=== PATIENT | male | born 1930 | race Caucasian/White ===

== ENCOUNTER 2016-07-28 08:49 | Inpatient (IN) | payer OTHER, MEDICARE ==
[~2016-07-28] VITALS: Ht 175.3 cm; Wt 84.3 kg
--- NOTE | ~2016-07-28 | HC ---
[facility] [place] [address] CONSULTATION Name: ARIN KITCHEN Julisa Room #: 437-P [facility] IN ..#: [id number] Admission: 07/28/16 Attend Phys: Geo Bills MD Discharge: Date of : 31 Report #: [id number] THIS REPORT FOR: //name// CC: Geo Awad DATE OF SERVICE: 07/28/2016 REASON FOR CONSULTATION: Preop surgical clearance with aortic stenosis. HISTORY OF PRESENT ILLNESS: This is a very pleasant 85-year-old gentleman who was brought from the [facility] because of hematochezia. The patient stated that he did develop bright red blood per rectum on the night prior to consultation, but had no abdominal discomfort or abdominal pain. He does not have any chest pain, pressure, tightness or heaviness and does have dementia. His history is difficult to follow since he does ____ topic. The patient had a knee surgery performed not so long ago and when he was brought back for evaluation of his 2nd knee surgery, he was found to have a systolic murmur and aortic stenosis was identified. The echocardiogram from demonstrates a peak velocity of greater than 0.2 meters per second and a calculated aortic valve area of 0.66 cm2. He does not have any syncope, he does not have any orthopnea. He is limited by his knees, so he is not very ambulatory either. He has no fever, chills, night sweats. No documented ischemic heart disease. PAST MEDICAL HISTORY: Significant for: 1. Hypertension. 2. 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 3. Degenerative joint disease. 4. Hypertension. 5. Dyslipidemia. 6. Some degree of organicity. ALLERGIES: No known drug allergies. PAST SURGICAL HISTORY: 1. Laminectomies times 2. 2. Eye surgery for detached retina 17 times. 3. Right knee surgery. 4. Nephrolithiasis treatment. MEDICATIONS: At home are Aricept, Namenda, glucosamine, multivitamin, vitamin D, Tylenol and Zoloft. Electrocardiogram demonstrates normal sinus rhythm, no acute changes. LABORATORY DATA: Demonstrates a potassium of 4.0. BUN and creatinine are 11 [facility] [address] [place] [address] CONSULTATION Name: ARIN KITCHEN Room #: 437-P [facility] IN ..#: [id number] Admission: 07/28/16 Attend Phys: Geo Bills MD Discharge: Date of : 31 Report #: [id number] and 0.9. H and H is 14.9 and 44.3 with a platelet count of 219,000. RADIOLOGIC: CT demonstrates colonic diverticulosis without CT evidence of diverticulitis. REVIEW OF SYSTEMS: Difficulty to obtain from the patient due to his organicity, but from the chart, except for symptoms previously mentioned and those commensurate with comorbid states that documented in the chart, review of systems is negative. PHYSICAL EXAMINATION: GENERAL: Well-developed, well-nourished male, resting comfortably in no distress. VITAL SIGNS: Noted and reviewed in the chart. HEENT: Normocephalic, atraumatic. Pupils are equal, round, reactive to light and accommodation. Extraocular muscles are intact. Sclerae and conjunctivae are anicteric. NECK: JVD is normal. Carotid upstrokes are bilaterally symmetrical. No bruits are heard. No thyromegaly. No lymphadenopathy. LUNGS: Clear to auscultation. No wheezes, rhonchi or crackles. No CVA tenderness. CARDIAC: Demonstrates a regular rhythm. Grade 3/6 systolic murmur in the aortic region ____ entire precordium. Carotid upstrokes are depressed bilaterally with transmission of the murmur into the neck. PMI is not palpable. No diastolic murmurs are noted. ABDOMEN: Soft, nontender, no hepatosplenomegaly ____. EXTREMITIES: Without cyanosis, clubbing or edema. NEUROLOGIC: Cranial nerves 2-12 are grossly normal and symmetrical. PSYCHIATRIC: Alert, oriented with normal affect. SKIN: Warm and dry. IMPRESSION: 1. Aortic stenosis, severe. The issue is with significant aortic stenosis documented by the echocardiogram. He is a high risk for any type of hypotensive episodes that might occur. We will need to discuss with family what long-term plans we might have for that. 2. Hematochezia. The question is whether we can go conservatively or we need to proceed invasively and we will again discuss this more fully once we can come to consensus with family, the patient, etc. <ELECTRONICALLY SIGNED> By: Dmitriy Brown MD 07/29/16 1701 [id number] [id number] Dmitriy Brown MD /nt
--- NOTE | ~2016-07-28 | D ---
[facility] [place] [address] DISCHARGE SUMMARY Name: MARCO ANTONIOAYAANARIN Room #: 437-P [facility] IN ..#: [id number] Admission: 07/28/16 Attend Phys: Geo Bills MD Discharge: 07/30/16 Date of : 31 Report #: [id number] THIS REPORT FOR: //name// CC: Geo Awad FINAL DIAGNOSES: 1. Lower gastrointestinal bleed. 2. Internal hemorrhoids. 3. Diverticulosis. 4. Aortic stenosis. HOSPITAL COURSE: The patient was admitted to the emergency room with bright red blood per rectum. Hemoglobin remained stable between 12 and 14 during his stay. By 24 hours, the bleeding had stopped. He was taken for a colonoscopy by Dr. Kapadia. Generally, those results revealed sigmoid diverticulosis, with no signs of bleeding, but internal and small external component of hemorrhoids. Ultimately, we felt that his bleeding was likely related to the hemorrhoids. He was treated with topical foam treatment. Home medications were continued and he had no other interval complications. It should also be noted that I spoke to his daughter who is a physician regarding his aortic stenosis. This has been diagnosed at [facility] and he has plans for outpatient workup with the cardiology service. Dr. Brown saw him here, but did not have any new recommendations for treatment as he was clinically stable. DISPOSITION: To be discharged to home with diet and activity as tolerated. He will resume all his home medications plus Proctofoam twice a day for a week. Follow up with Dr. Awad in 2-4 weeks. <ELECTRONICALLY SIGNED> By: Geo Bills MD 08/01/16 0751 1007 1125 Geo Bills MD /nt
--- NOTE | ~2016-07-28 | H ---
[facility] [place] [address] HISTORY AND PHYSICAL Name: ARIN KITCHEN Room #: 437-P [facility] IN ..#: [id number] Admission: 07/28/16 Attend Phys: Geo Bills MD Discharge: Date of : 31 Report #: [id number] THIS REPORT FOR: //name// CC: Geo Awad DATE OF SERVICE: 07/28/2016 CHIEF COMPLAINT: Blood per rectum. HISTORY OF PRESENT ILLNESS: The patient is an 85-year-old gentleman from ____ was brought into the Emergency Room by his daughter today for evaluation of GI bleed. She gave most of the history as the patient has prior history of some dysarthria and perhaps little bit of cognitive dysfunction, may be related to previous vascular event. She reports that last night, they went out to dinner and he seemed in his usual health. He called her this morning and she came over to check on him and noted there was bright red blood in his bathroom and on his clothes. It appeared to her that he was having some lower GI bleed. It should also be mentioned that his daughter, Sonja Kitchen is an auto parts manager in town that works in long-term care and knows his case well. Since he presented to the Emergency Room, he has had at least another episode of blood per rectum. He is denying any abdominal pain. She reports that he does not take aspirin or ibuprofen or any other type of anticoagulants. PAST MEDICAL HISTORY: Osteoarthritis of the knees, mild cognitive disorder with dysarthria. He has history of aortic stenosis. PAST SURGICAL HISTORY: He has had a right knee replacement. FAMILY HISTORY: Noncontributory. SOCIAL HISTORY: No chronic alcohol or tobacco use. He worked in construction for a number of years. ALLERGIES: No known drug allergies. MEDICATIONS: Aricept 10 mg, Tylenol, Zoloft 100 mg, Namenda 10 mg, glucosamine, multivitamin, vitamin D. REVIEW OF SYSTEMS: He is denying chest pain, shortness of breath, abdominal pain, nausea or vomiting, dysuria. OBJECTIVE: VITAL SIGNS: Temperature 36.4, pulse 56, respirations 20, blood pressure 170/88, O2 sat 100% on room air. GENERAL: He is an elderly man, he is awake and alert. 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 LUNGS: Clear. HEART: Regular rate and rhythm. There is a soft 2-3/6 systolic murmur on the left sternal border. ABDOMEN: Protuberant, soft, normoactive bowel sounds. No rebound or guarding. No palpable masses. EXTREMITIES: No cyanosis, clubbing or edema. NEUROLOGIC: Cranial nerves intact. Motor strength 5/5 throughout. LABORATORY DATA: Hemoglobin is 14.9. Chemistries normal. CT of the abdomen revealed diverticulosis, but no changes to suggest acute inflammatory process. ASSESSMENT: 1. Lower gastrointestinal bleed. 2. Diverticulosis. 3. Aortic stenosis. PLAN: He will be admitted to telemetry with serial hemoglobin labs. I will ask the GI service to see him and order a bleeding scan at this time to see if he is a candidate for embolization. Given nature of bright red blood, it appears this would be a lower GI source. <ELECTRONICALLY SIGNED> By: Geo Bills MD 07/29/16 0803 [id number] [id number] Geo Bills MD /nt
--- NOTE | ~2016-07-28 | P ---
[facility] [place] [address] PROCEDURE REPORT Name: MARCO ANTONIOAAYANARIN Egan Room #: 437-P [facility] IN ..#: [id number] Admission: 07/28/16 Attend Phys: Geo Bills MD Discharge: Date of : 31 Report #: [id number] THIS REPORT FOR: //name// CC: Geo Awad DATE OF SERVICE: 07/29/2016 PROCEDURE PERFORMED: Colonoscopy. HISTORY OF PRESENT ILLNESS: The patient is an 85-year-old male with recent hematochezia. It is not associated with abdominal pain, no previous history of GI bleed. CT scan on admission showed diverticulosis, but no evidence of colitis or inflammation. Last colonoscopy was at least greater than 10 years ago. We discussed proceeding with the colonoscopy with sedation yesterday when he presented, however, he has a history of severe aortic stenosis. Therefore, cardiology was consulted and I spoke with Dr. Brown yesterday as well as speaking with the family, he was very high risk for sedation of any kind. Overnight 2 bleeding scans were performed which were negative; however, this morning, he began having some more bright red blood per rectum; therefore, I had a long discussion with the patient's daughter who is a durable power of claim attorney and we discussed potentially proceeding with a flexible sigmoidoscopy without any sedation due to his cardiac risk, she was in agreement with that. DESCRIPTION OF PROCEDURE: The risks and benefits of the procedure were explained to the patient's daughter, those risks including but not limited to bleeding, perforation, and she understood these risks and gave informed consent. There was no sedation given for the procedure. The procedure was performed in the GI lab. A digital rectal exam was initially performed, which showed small external hemorrhoids, nonbleeding, otherwise normal. Next, using a standard Fujinon colonoscope, the scope was placed in the patient's anus and advanced under direct vision into the transverse colon. The overall prep was actually very good. The patient was tolerating the procedure well from a vital signs standpoint, not having any abdominal pain. Therefore, I proceeded with a full colonoscopy. The scope was advanced to the cecum. The cecum and ileocecal valve were normal in appearance. The ascending, transverse, and descending colon were all normal. Of note, there was no blood noted throughout the entire exam today and again, the prep was very, very good overall considering the patient was not prepped for colonoscopy. Multiple diverticula were noted in the sigmoid colon, no stigmata of recent bleeding, no blood or clots were seen. The rectal mucosa was normal. No blood in the rectum. There were internal hemorrhoids. It was difficult to tell if there was a small anal fissure, but [facility] [address] [place] [address] PROCEDURE REPORT Name: ARIN KITCEHN Room #: 437-P [facility] IN M.R.#: [id number] Admission: 07/28/16 Attend Phys: Geo Bills MD Discharge: Date of : 31 Report #: [id number] again no clot or blood was seen in this area. The scope was then withdrawn and the procedure terminated. The patient tolerated the procedure well. IMPRESSION: 1. Sigmoid diverticulosis, no stigmata of recent bleeding. It is possible the patient could have bled from this area which has now stopped. 2. Internal hemorrhoids with small component of external hemorrhoids, doubt anal sphincter, but still possible. This may be etiology of recent bleeding. There was no active bleeding at this time. RECOMMENDATIONS: 1. We will use Analpram b.i.d. 2. Advance diet. 3. Continue to monitor the patient closely. If his hemoglobin is stable, consider discharge in the near future. Thank you for allowing me to participate in his care. <ELECTRONICALLY SIGNED> By: Ranjan Kapadia MD 07/30/16 1147 [id number] [id number] Ranjan Kapadia MD /nt
--- NOTE | ~2016-07-28 | HC ---
[facility] [place] [address] CONSULTATION Name: ARIN KITCHEN Room #: 437-P [facility] IN M.R.#: [id number] Admission: 07/28/16 Attend Phys: Stephanie Bills MD Discharge: Date of : 31 Report #: [id number] THIS REPORT FOR: //name// CC: STEPHANIE KITCHEN DO Zacarias Ritesh DATE OF SERVICE: 07/28/2016 HISTORY OF PRESENT ILLNESS: The patient is an 85-year-old male with new onset hematochezia. He denies any abdominal pain. He does have a history of dementia. He currently lives at nurse in a facility, began having bright red blood per rectum. Again, he denies any abdominal pain, no nausea or vomiting, no fevers or chills. His daughter is a physician, I spoke with her today. Apparently, there was possibility of blood noted recently and a UA was done, which was negative and stool Hemoccult testing was negative, but this was approximately 1-2 weeks ago. The patient is unsure as well as his daughter if he has had a colonoscopy, and if so when the last endoscopy was performed. He has had a right total knee done at , which he tolerated well and he was scheduled to have a left total knee, but preop evaluation showed a significant aortic stenosis; therefore, the cardiac workup was still under way, this was done at [facility]. The patient is not on any anticoagulation therapy. He denies any chest pain or shortness of breath. No previous history of gastrointestinal bleed. PAST MEDICAL HISTORY: Aortic stenosis, recent echocardiogram performed at [facility], history of right total knee arthroplasty, hypertension, dementia, renal stones, hypercholesterolemia, previous laminectomy, previous eye surgery. MEDICATIONS ON ADMISSION: Aricept, Namenda, glucosamine, multivitamin, Tylenol, vitamin D, Zoloft. ALLERGIES: No known drug allergies. SOCIAL HISTORY: No recent history of tobacco or alcohol use. FAMILY HISTORY: No known history of colon cancer. REVIEW OF SYSTEMS: As per HPI. PHYSICAL EXAMINATION: VITAL SIGNS: Temperature is 97.6, pulse 56, blood pressure 147/73, respiratory rate is 13. GENERAL: He is not oriented to place. He is in no acute distress. [address] [address] CONSULTATION Name: ARIN KITCHEN Room #: 437-P [facility] IN .R.#: [id number] Admission: 07/28/16 Attend Phys: Stephanie Bills MD Discharge: Date of : 31 Report #: [id number] HEENT: Sclerae nonicteric. Oropharynx clear. NECK: Supple. CARDIOVASCULAR: Regular rate with systolic ejection murmur noted. CHEST: Clear to auscultation bilaterally. ABDOMEN: Soft. He is nontender, nondistended. Normoactive bowel sounds. EXTREMITIES: No cyanosis, clubbing or edema. LABORATORY DATA: Sodium 144, potassium 4.0, chloride 106, bicarb 29, BUN 11, creatinine 0.9. Lipase 88. INR 1.0. WBC is 7.3, hemoglobin 14.9, platelet count is 219. CT scan of the abdomen and pelvis was performed on admission, which showed colonic diverticulosis without evidence of diverticulitis. No inflammatory masses, ascites or bowel obstruction were seen. ASSESSMENT AND PLAN: Hematochezia, suspect this may be secondary to a diverticular bleed. The patient is not having any abdominal pain at this time. I agree with serial hemoglobin checks, which are already scheduled. I spoke with the daughter who is a physician regarding our options including potentially prepping the patient for colonoscopy as early as tomorrow. However, he does have a history of significant aortic stenosis apparently and was currently under workup for this prior to being considered candidate for his knee surgery. We will therefore obtain a cardiology consult and then continue to monitor patient closely. We will start clear liquid diet at this time. Thank you for allowing me to participate in his care. <ELECTRONICALLY SIGNED> By: Ranjan Kapadia MD 07/29/16 1012 1232 0146 Ranjan Kapadia MD /nt
[2016-07-28 08:52] VITALS: BP 170/88
[2016-07-28] MEDS ORDERED: ARICEPT 5 MG TAB5 MG PO (09:20)
[2016-07-28] MEDS ORDERED: GLUCOSAMINE HC500 MG PO (09:20)
[2016-07-28] MEDS ORDERED: NAMENDA 10 MG T10 MG PO (09:20)
[2016-07-28] MEDS ORDERED: MULTI VITAMIN1 EACH PO (09:21)
[2016-07-28] MEDS ORDERED: VITAMIN D1000 UNI1 PO (09:21)
[2016-07-28 09:22] LABS: ABSOLUTE NEUTROPHILS 4.2 thou/uL (1.4-8.2); BASOPHILS 0.7 % (0.0-2.0); HEMATOCRIT 44.3 % (42.0-52.0); HEMOGLOBIN 14.9 gm/dL (14.0-18.0); LYMPHOCYTES 30.7 % (24.0-44.0); MCH 31.1 pg (26.0-34.0); MCHC 33.7 % (28.0-37.0); MCV 92.1 fL (80.0-100.0); PLATELET COUNT 219 thou/uL (150-400); POLYS 57.6 % (36.0-66.0); RBC 4.81 mil/uL (4.50-6.00); WBC 7.3 thou/uL (4.0-11.0)
[2016-07-28] MEDS ORDERED: ZOLOFT50 MG PO (09:22)
[2016-07-28] MEDS ORDERED: TYLENOL325 MG PO (09:22)
[2016-07-28 09:24] LABS: CALCIUM 9.1 mg/dL (8.5-10.1); CREATININE 0.9 mg/dL (0.6-1.3); MANUAL DIFF NO
[2016-07-28 09:33] LABS: PROTIME 10.4 Seconds (9.3-11.4)
[2016-07-28 10:55] VITALS: BP 147/73
[2016-07-28 12:00] VITALS: BP 163/61
[2016-07-28 13:38] LABS: HEMATOCRIT 37.3 % (42.0-52.0)
[2016-07-28 13:42] LABS: HEMOGLOBIN 12.8 gm/dL (14.0-18.0)
[2016-07-28 16:00] VITALS: BP 158/79
[2016-07-28 18:57] LABS: HEMATOCRIT 38.4 % (42.0-52.0)
[2016-07-28 19:48] VITALS: BP 131/93
[2016-07-28 23:59] VITALS: BP 144/60
[2016-07-29 01:27] LABS: HEMATOCRIT 37.8 % (42.0-52.0); HEMOGLOBIN 12.6 gm/dL (14.0-18.0); MCHC 33.4 % (28.0-37.0); MCV 92.8 fL (80.0-100.0); RBC 4.07 mil/uL (4.50-6.00); RDW 12.5 % (10.5-14.5); WBC 6.9 thou/uL (4.0-11.0)
[2016-07-29 05:09] VITALS: BP 134/59
[2016-07-29 07:47] LABS: HEMATOCRIT 36.7 % (42.0-52.0); HEMOGLOBIN 12.4 gm/dL (14.0-18.0)
[2016-07-29 08:00] VITALS: BP 137/67
[2016-07-29 13:08] LABS: HEMATOCRIT 40.3 % (42.0-52.0); HEMOGLOBIN 13.6 gm/dL (14.0-18.0)
[2016-07-29 16:00] VITALS: BP 121/66
[2016-07-29 18:56] LABS: HEMATOCRIT 36.7 % (42.0-52.0); HEMOGLOBIN 12.5 gm/dL (14.0-18.0)
[2016-07-29 20:05] VITALS: BP 134/63
[2016-07-30 04:56] VITALS: BP 127/58
[2016-07-30 08:00] VITALS: BP 119/62
[2016-07-30] MEDS ORDERED: ANALPRAM HC 2.530 GM RECTAL (08:05)
[2016-07-30 08:30] LABS: HEMATOCRIT 33.9 % (42.0-52.0); HEMOGLOBIN 11.6 gm/dL (14.0-18.0)
[2016-07-30 11:22] VITALS: BP 119/62
[2016-07-30 11:46] VITALS: BP 105/46
== END 2016-07-30 12:56 | disposition home or self-care (01) | DRG 394 ==
LOC: ER 08:49 → EROBS 10:18 → 4S 10:53
PROVIDERS: Emergency Medicine; Internal Medicine Geriatric Medicine
PROC: 0DJD8ZZ Inspection of Lower Intestinal Tract, Via Natural or Artificial Opening Endoscopic (ICD-10-PCS; principal; 2016-07-29)
DX: K64.8 Other hemorrhoids (principal); K62.5 Hemorrhage of anus and rectum; K57.30 Diverticulosis of large intestine without perforation or abscess without bleeding; I35.0 Nonrheumatic aortic (valve) stenosis; F03.90 Unspecified dementia, unspecified severity, without behavioral disturbance, psychotic disturbance, mood disturbance, and anxiety; H40.9 Unspecified glaucoma; I10 Essential (primary) hypertension; E78.00 Pure hypercholesterolemia, unspecified; Z96.651 Presence of right artificial knee joint; H54.41 Blindness, right eye, normal vision left eye; E78.5 Hyperlipidemia, unspecified; M17.9 Osteoarthritis of knee, unspecified; K64.4 Residual hemorrhoidal skin tags; Z98.890 Other specified postprocedural states; Z79.899 Other long term (current) drug therapy; Z87.442 Personal history of urinary calculi; Z23 Encounter for immunization
CPT/HCPCS: 10100